=== PATIENT | male | born 2000 | race Caucasian/White ===

== ENCOUNTER 2021-02-24 14:28 | Inpatient (IN) | payer SELFPAY ==
[2021-02-24] MEDS ORDERED: Sodium Chloride 0.9% 1,000 ML IV ONE (14:31)
[2021-02-24] MEDS ORDERED: Sodium Chloride 0.9% 10 ML Syringe FLUSH PRN ×3 (14:31→18:17)
[2021-02-24] MEDS ORDERED: Diphtheria,Pertussis(Acell),Tetanus Vaccine 0.5 ML Syringe IM ONE (14:31)
[2021-02-24] MEDS ORDERED: Sodium Chloride 0.9% 2.5 ML Syringe FLUSH PRN ×3 (14:31→18:17)
[2021-02-24] MEDS ORDERED: fentaNYL 50 MCG/ML SDV IVPUSH ONE (14:33)
[2021-02-24] MEDS ORDERED: HYDROmorphone 1 MG/ML Syringe ONE (14:36)
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
[2021-02-24 15:08] LABS: BLOOD UREA NITROGEN,BUN 17 mg/dL (7.0-18.0); CHLORIDE,CL 104 mmol/L (98-107); GLUCOSE RANDOM 105 mg/dL (74-106); LIPASE 42 U/L (73-393); POTASSIUM,K 3.6 mmol/L (3.5-5.1); SODIUM,NA 142 mmol/L (136-148)
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
[2021-02-24] MEDS ORDERED: Morphine 4 MG/ML Syringe IVPUSH ONE (15:45)
[2021-02-24] MEDS: Sodium Chloride 0.9% 1,000 ML IV SCH ×2 (15:54→21:48)
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
[2021-02-24] MEDS ORDERED: HYDROmorphone 1 MG/ML Syringe IVPUSH ONE (16:00)
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
--- NOTE | 2021-02-24 16:47 | PCM.EKG ---
#1 Interpretation EKG Date: 02/24/21 Time: 16:36 Rhythm: NSR Rate (Beats/Min): 92 [place]: Normal P-Wave: Present QRS: Normal ST-T: Normal QT: Normal Comparison: NA - No Prior EKG EKG Interpretation Comments: Sinus Rhythm
[2021-02-24] MEDS ORDERED: HYDROmorphone 2 MG/ML Syringe IVPUSH ONE (17:28)
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
[2021-02-24] MEDS ORDERED: Ketorolac 30 MG/ML SDV IVPUSH ONE (17:54)
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
[2021-02-24] MEDS ORDERED: Sodium Chloride 0.9% 10 ML SDV IV PRN (18:17)
[2021-02-24] MEDS ORDERED: Ondansetron 4 MG/2 ML SDV IVPUSH PRN (18:17)
[2021-02-24] MEDS ORDERED: Acetaminophen/HYDROcodone 325-5 MG Tab PO PRN (18:17)
[2021-02-24] MEDS ORDERED: Cyclobenzaprine 5 MG Tab PO PRN (18:20)
[2021-02-24] MEDS ORDERED: Lactated Ringers 1,000 ML IV SCH (18:30)
[2021-02-24] MEDS: Nicotine 14 MG/24 Hr Patch TRDERM SCH (18:31)
[2021-02-24] MEDS: Morphine 4 MG/ML Syringe IVPUSH PRN ×3 (19:18→22:55)
[2021-02-24] MEDS: Ketorolac 30 MG/ML SDV IVPUSH SCH (20:24)
[2021-02-25] MEDS: Ketorolac 30 MG/ML SDV IVPUSH SCH ×4 (00:08→21:28)
[2021-02-25] MEDS: Morphine 4 MG/ML Syringe IVPUSH PRN ×8 (01:19→21:42)
[2021-02-25] MEDS: Sodium Chloride 0.9% 1,000 ML IV SCH (05:58)
[2021-02-25] MEDS: Nicotine 14 MG/24 Hr Patch TRDERM SCH (08:19)
--- NOTE | 2021-02-25 10:50 | PCM.PN ---
- General Info Date of Service: 02/25/21 Functional Status: Reports: Pain Controlled, Tolerating Diet, Urinating, Incentive Spirometry. Denies: New Symptoms - Review of Systems General: Reports: No Symptoms HEENT: Reports: No Symptoms Pulmonary: Reports: No Symptoms Cardiovascular: Reports: No Symptoms Gastrointestinal: Reports: No Symptoms Genitourinary: Reports: No Symptoms Musculoskeletal: Reports: Leg Pain Skin: Reports: No Symptoms Neurological: Reports: No Symptoms Psychiatric: Reports: No Symptoms - Patient Data Vitals - Most Recent: Last Vital Signs Temp 37.2 C 02/25/21 08:38 Pulse 105 H 02/25/21 08:40 Resp 18 02/25/21 08:38 BP 115/60 02/25/21 08:38 Pulse Ox 95 02/25/21 08:40 Weight - Most Recent: 104.326 kg I&O - Last 24 Hours: Intake & Output 02/24/21 02/25/21 02/25/21 22:59 06:59 14:59 Intake Total 320 330 Output Total 400 Balance -80 330 Lab Results Last 24 Hours: Laboratory Results - last 24 hr 02/24/21 02/24/21 02/24/21 Range/Units 14:35 14:35 15:00 WBC 16.08 H (4.0-11.0) K/uL RBC 4.85 (4.50-5.90) M/uL Hgb 15.7 (13.0-17.0) g/dL Hct 44.4 (38.0-50.0) % MCV 91.5 (80.0-98.0) fL MCH 32.4 H (27.0-32.0) pg MCHC 35.4 (31.0-37.0) g/dL RDW Std Deviation 42.4 (28.0-62.0) fl RDW Coeff of [place] 13 (11.0-15.0) % Plt Count 263 (150-400) K/uL MPV 11.00 (7.40-12.00) fL Neut % (Auto) 75.6 (48.0-80.0) % Lymph % (Auto) 16.9 (16.0-40.0) % [place] % (Auto) 6.6 (0.0-15.0) % Eos % (Auto) 0.7 (0.0-7.0) % Baso % (Auto) 0.2 (0.0-1.5) % Neut # (Auto) 12.2 H (1.4-5.7) K/uL Lymph # (Auto) 2.7 H (0.6-2.4) K/uL [place] # (Auto) 1.1 H (0.0-0.8) K/uL Eos # (Auto) 0.1 (0.0-0.7) K/uL Baso # (Auto) 0.0 (0.0-0.1) K/uL Nucleated RBC % 0.0 /100WBC Nucleated RBCs # 0 K/uL INR 1.01 Sodium 142 (136-148) mmol/L Potassium 3.6 (3.5-5.1) mmol/L Chloride 104 (98-107) mmol/L Carbon Dioxide 29.0 (21.0-32.0) mmol/L BUN 17 (7.0-18.0) mg/dL Creatinine 0.9 (0.8-1.3) mg/dL Est Cr Clr Drug Dosing TNP Estimated GFR (MDRD) > 60.0 ml/min Glucose 105 (74-106) mg/dL Calcium 9.2 (8.5-10.1) mg/dL Total Bilirubin 0.5 (0.2-1.0) mg/dL AST 30 (15-37) IU/L ALT 56 (14-63) IU/L Alkaline Phosphatase 102 (46-116) U/L Total Protein 8.1 (6.4-8.2) g/dL Albumin 4.2 (3.4-5.0) g/dL Globulin 3.9 (2.6-4.0) g/dL Albumin/Globulin Ratio 1.1 (0.9-1.6) Lipase 42 L (73-393) U/L Urine Color Urine Appearance Urine pH (5.0-8.0) Ur Specific [place] (1.001-1.035) Urine Protein (NEGATIVE) mg/dL Urine Glucose (UA) (NEGATIVE) mg/dL Urine Ketones (NEGATIVE) mg/dL Urine Occult Blood (NEGATIVE) Urine Nitrite (NEGATIVE) Urine Bilirubin (NEGATIVE) Urine Urobilinogen (<2.0) EU/dL Ur Leukocyte Esterase (NEGATIVE) Urine RBC (0-2/HPF) Urine WBC (0-5/HPF) Ur Epithelial Cells (NONE-FEW) Urine Bacteria (NEGATIVE) Urine Opiates Screen (NEGATIVE) Ur Oxycodone Screen (NEGATIVE) Urine Methadone Screen (NEGATIVE) Ur Barbiturates Screen (NEGATIVE) Ur Phencyclidine Scrn (NEGATIVE) Ur Amphetamine Screen (NEGATIVE) U Methamphetamines Scrn (NEGATIVE) U Benzodiazepines Scrn (NEGATIVE) U Cocaine Metab Screen (NEGATIVE) U Marijuana (THC) Screen (NEGATIVE) Ethyl Alcohol < 3.0 mg/dL SARS-CoV-2 RNA (NURYS) (NEGATIVE) Blood Type Antibody Screen 02/24/21 02/24/21 02/24/21 Range/Units 15:00 16:31 19:35 WBC (4.0-11.0) K/uL RBC (4.50-5.90) M/uL Hgb (13.0-17.0) g/dL Hct (38.0-50.0) % MCV (80.0-98.0) fL MCH (27.0-32.0) pg MCHC (31.0-37.0) g/dL RDW Std Deviation (28.0-62.0) fl RDW Coeff of [place] (11.0-15.0) % Plt Count (150-400) K/uL MPV (7.40-12.00) fL Neut % (Auto) (48.0-80.0) % Lymph % (Auto) (16.0-40.0) % [place] % (Auto) (0.0-15.0) % Eos % (Auto) (0.0-7.0) % Baso % (Auto) (0.0-1.5) % Neut # (Auto) (1.4-5.7) K/uL Lymph # (Auto) (0.6-2.4) K/uL [place] # (Auto) (0.0-0.8) K/uL Eos # (Auto) (0.0-0.7) K/uL Baso # (Auto) (0.0-0.1) K/uL Nucleated RBC % /100WBC Nucleated RBCs # K/uL INR Sodium (136-148) mmol/L Potassium (3.5-5.1) mmol/L Chloride (98-107) mmol/L Carbon Dioxide (21.0-32.0) mmol/L BUN (7.0-18.0) mg/dL Creatinine (0.8-1.3) mg/dL Est Cr Clr Drug Dosing Estimated GFR (MDRD) ml/min Glucose (74-106) mg/dL Calcium (8.5-10.1) mg/dL Total Bilirubin (0.2-1.0) mg/dL AST (15-37) IU/L ALT (14-63) IU/L Alkaline Phosphatase (46-116) U/L Total Protein (6.4-8.2) g/dL Albumin (3.4-5.0) g/dL Globulin (2.6-4.0) g/dL Albumin/Globulin Ratio (0.9-1.6) Lipase (73-393) U/L Urine Color YELLOW Urine Appearance CLEAR Urine pH 5.5 (5.0-8.0) Ur Specific [place] >= 1.030 (1.001-1.035) Urine Protein NEGATIVE (NEGATIVE) mg/dL Urine Glucose (UA) NEGATIVE (NEGATIVE) mg/dL Urine Ketones NEGATIVE (NEGATIVE) mg/dL Urine Occult Blood NEGATIVE (NEGATIVE) Urine Nitrite NEGATIVE (NEGATIVE) Urine Bilirubin NEGATIVE (NEGATIVE) Urine Urobilinogen 0.2 (<2.0) EU/dL Ur Leukocyte Esterase NEGATIVE (NEGATIVE) Urine RBC 0-1 (0-2/HPF) Urine WBC 0-1 (0-5/HPF) Ur Epithelial Cells RARE (NONE-FEW) Urine Bacteria RARE (NEGATIVE) Urine Opiates Screen (NEGATIVE) Ur Oxycodone Screen (NEGATIVE) Urine Methadone Screen (NEGATIVE) Ur Barbiturates Screen (NEGATIVE) Ur Phencyclidine Scrn (NEGATIVE) Ur Amphetamine Screen (NEGATIVE) U Methamphetamines Scrn (NEGATIVE) U Benzodiazepines Scrn (NEGATIVE) U Cocaine Metab Screen (NEGATIVE) U Marijuana (THC) Screen (NEGATIVE) Ethyl Alcohol mg/dL SARS-CoV-2 RNA (NURYS) NEGATIVE (NEGATIVE) Blood Type O NEGATIVE Antibody Screen NEGATIVE 02/24/21 Range/Units 19:35 WBC (4.0-11.0) K/uL RBC (4.50-5.90) M/uL Hgb (13.0-17.0) g/dL Hct (38.0-50.0) % MCV (80.0-98.0) fL MCH (27.0-32.0) pg MCHC (31.0-37.0) g/dL RDW Std Deviation (28.0-62.0) fl RDW Coeff of [place] (11.0-15.0) % Plt Count (150-400) K/uL MPV (7.40-12.00) fL Neut % (Auto) (48.0-80.0) % Lymph % (Auto) (16.0-40.0) % [place] % (Auto) (0.0-15.0) % Eos % (Auto) (0.0-7.0) % Baso % (Auto) (0.0-1.5) % Neut # (Auto) (1.4-5.7) K/uL Lymph # (Auto) (0.6-2.4) K/uL [place] # (Auto) (0.0-0.8) K/uL Eos # (Auto) (0.0-0.7) K/uL Baso # (Auto) (0.0-0.1) K/uL Nucleated RBC % /100WBC Nucleated RBCs # K/uL INR Sodium (136-148) mmol/L Potassium (3.5-5.1) mmol/L Chloride (98-107) mmol/L Carbon Dioxide (21.0-32.0) mmol/L BUN (7.0-18.0) mg/dL Creatinine (0.8-1.3) mg/dL Est Cr Clr Drug Dosing Estimated GFR (MDRD) ml/min Glucose (74-106) mg/dL Calcium (8.5-10.1) mg/dL Total Bilirubin (0.2-1.0) mg/dL AST (15-37) IU/L ALT (14-63) IU/L Alkaline Phosphatase (46-116) U/L Total Protein (6.4-8.2) g/dL Albumin (3.4-5.0) g/dL Globulin (2.6-4.0) g/dL Albumin/Globulin Ratio (0.9-1.6) Lipase (73-393) U/L Urine Color Urine Appearance Urine pH (5.0-8.0) Ur Specific [place] (1.001-1.035) Urine Protein (NEGATIVE) mg/dL Urine Glucose (UA) (NEGATIVE) mg/dL Urine Ketones (NEGATIVE) mg/dL Urine Occult Blood (NEGATIVE) Urine Nitrite (NEGATIVE) Urine Bilirubin (NEGATIVE) Urine Urobilinogen (<2.0) EU/dL Ur Leukocyte Esterase (NEGATIVE) Urine RBC (0-2/HPF) Urine WBC (0-5/HPF) Ur Epithelial Cells (NONE-FEW) Urine Bacteria (NEGATIVE) Urine Opiates Screen POSITIVE (NEGATIVE) Ur Oxycodone Screen NEGATIVE (NEGATIVE) Urine Methadone Screen NEGATIVE (NEGATIVE) Ur Barbiturates Screen NEGATIVE (NEGATIVE) Ur Phencyclidine Scrn NEGATIVE (NEGATIVE) Ur Amphetamine Screen NEGATIVE (NEGATIVE) U Methamphetamines Scrn NEGATIVE (NEGATIVE) U Benzodiazepines Scrn NEGATIVE (NEGATIVE) U Cocaine Metab Screen NEGATIVE (NEGATIVE) U Marijuana (THC) Screen NEGATIVE (NEGATIVE) Ethyl Alcohol mg/dL SARS-CoV-2 RNA (NURYS) (NEGATIVE) Blood Type Antibody Screen Med Orders - Current: Current Medications Hydrocodone Bitart/Acetaminophen (Acetaminophen/Hydrocodone 325-5 Mg Tab) 2 tab PO Q4H PRN PRN Reason: Pain (moderate 4-6) Cyclobenzaprine HCl (Cyclobenzaprine 5 Mg Tab) 5 mg PO TID PRN PRN Reason: muscle spasm Last Admin: 02/24/21 21:10 Dose: 5 mg Documented by: Sodium Chloride (Normal Saline) 1,000 mls @ 125 mls/hr IV STAT [facility] Last Admin: 02/25/21 05:58 Dose: 125 mls/hr Documented by: Lactated Ringer's (Ringers, Lactated) 1,000 mls @ 125 mls/hr IV ASDIRECTED [facility] Last Admin: 02/25/21 08:37 Dose: 125 mls/hr Documented by: Ketorolac Tromethamine (Ketorolac 30 Mg/Ml Sdv) 30 mg IVPUSH Q6H [facility] Stop: 02/25/21 12:31 Last Admin: 02/25/21 05:55 Dose: 30 mg Documented by: Morphine Sulfate (Morphine 4 Mg/Ml Syringe) 4 mg IVPUSH Q2H PRN PRN Reason: Pain (severe 7-10) Last Admin: 02/25/21 10:07 Dose: 4 mg Documented by: Nicotine (Nicotine 14 Mg/24 Hr Patch) 14 mg TRDERM DAILY [facility] Last Admin: 02/25/21 08:19 Dose: 14 mg Documented by: Ondansetron HCl (Ondansetron 4 Mg/2 Ml Sdv) 4 mg IVPUSH Q6H PRN PRN Reason: Nausea/Vomiting Polyethylene Glycol (Polyethylene Glycol 3350 Powder 17 Gm Packet) 17 gm PO D AILY TIM Sodium Chloride (Sodium Chloride 0.9% 10 Ml Syringe) 10 ml FLUSH ASDIRECTED PRN PRN Reason: Keep Vein Open Last Admin: 02/24/21 14:59 Dose: 10 ml Documented by: Sodium Chloride (Sodium Chloride 0.9% 2.5 Ml Syringe) 2.5 ml FLUSH ASDIRECTED PRN PRN Reason: Keep Vein Open Sodium Chloride (Sodium Chloride 0.9% 10 Ml Syringe) 10 ml FLUSH ASDIRECTED PRN PRN Reason: Keep Vein Open Last Admin: 02/24/21 14:59 Dose: 10 ml Documented by: Sodium Chloride (Sodium Chloride 0.9% 2.5 Ml Syringe) 2.5 ml FLUSH ASDIRECTED PRN PRN Reason: Keep Vein Open Sodium Chloride (Sodium Chloride 0.9% 10 Ml Syringe) 10 ml FLUSH ASDIRECTED PRN PRN Reason: Keep Vein Open Sodium Chloride (Sodium Chloride 0.9% 2.5 Ml Syringe) 2.5 ml FLUSH ASDIRECTED PRN PRN Reason: Keep Vein Open Sodium Chloride (Sodium Chloride 0.9% 10 Ml Sdv) 10 ml IV ASDIRECTED PRN PRN Reason: IV Use Discontinued Medications Diphtheria/Tetanus/Acell Pertussis (Diphtheria,Pertussis(Acell),Tetanus Vaccine 0.5 Ml Syringe) 0.5 ml IM .ONCE ONE Stop: 02/24/21 14:32 Last Admin: 02/24/21 15:17 Dose: 0.5 ml Documented by: Fentanyl (Fentanyl 50 Mcg/Ml Sdv) 100 mcg IVPUSH ONETIME ONE Stop: 02/24/21 14:34 Last Admin: 02/24/21 15:54 Dose: 100 mcg Documented by: Hydromorphone HCl (Hydromorphone 1 Mg/Ml Syringe) Confirm Administered Dose 1 mg .ROUTE .STK-MED ONE Stop: 02/24/21 14:37 Last Admin: 02/24/21 14:58 Dose: 1 mg Documented by: Hydromorphone HCl (Hydromorphone 1 Mg/Ml Syringe) 1 mg IVPUSH ONETIME ONE Stop: 02/24/21 16:01 Last Admin: 02/24/21 16:35 Dose: Not Given Documented by: Hydromorphone HCl (Hydromorphone 2 Mg/Ml Syringe) 1 mg IVPUSH ONETIME ONE Stop: 02/24/21 17:29 Last Admin: 02/24/21 17:37 Dose: 1 mg Documented by: Sodium Chloride (Normal Saline) 1,000 mls @ 999 mls/hr IV .Bolus ONE Stop: 02/24/21 15:31 Last Admin: 02/24/21 14:54 Dose: 999 mls/hr Documented by: Ketorolac Tromethamine (Ketorolac 30 Mg/Ml Sdv) 30 mg IVPUSH ONETIME ONE Stop: 02/24/21 17:55 Last Admin: 02/24/21 18:29 Dose: 30 mg Documented by: Morphine Sulfate (Morphine 4 Mg/Ml Syringe) 4 mg IVPUSH ONETIME ONE Stop: 02/24/21 15:46 Last Admin: 02/24/21 15:54 Dose: 4 mg Documented by: - Exam General: Alert, Oriented, Cooperative, No Acute Distress HEENT: Pupils Equal, Pupils Reactive, EOMI, Mucous Membr. Moist/[place] Neck: Supple, Trachea Midline Lungs: Clear to Auscultation, Normal Respiratory Effort Cardiovascular: Regular Rate, Regular Rhythm GI/Abdominal Exam: Soft, Non-Tender, No Distention, No Mass (Male) Exam: Normal Inspection Extremities: Other (right lower leg in cam boot and placed on traction. toes warm pink. Intact sensation. Good movement. No evidence of edema. Brisk capillary refill. Remainder of extremities normal. ) Peripheral Pulses: 2+: Radial (L), Radial (R), Posterior Tibial (L), Posterior Tibial (R), Dorsalis Pedis (L), Dorsalis Pedis (R) Skin: Warm, Dry, Intact Neurological: No New Focal Deficit Psy/Mental Status: Alert, Normal Affect, Normal Mood - Patient Data Lab Results Last 24 hrs: Laboratory Results - last 24 hr 02/24/21 02/24/21 02/24/21 Range/Units 14:35 14:35 15:00 WBC 16.08 H (4.0-11.0) K/uL RBC 4.85 (4.50-5.90) M/uL Hgb 15.7 (13.0-17.0) g/dL Hct 44.4 (38.0-50.0) % MCV 91.5 (80.0-98.0) fL MCH 32.4 H (27.0-32.0) pg MCHC 35.4 (31.0-37.0) g/dL RDW Std Deviation 42.4 (28.0-62.0) fl RDW Coeff of [place] 13 (11.0-15.0) % Plt Count 263 (150-400) K/uL MPV 11.00 (7.40-12.00) fL Neut % (Auto) 75.6 (48.0-80.0) % Lymph % (Auto) 16.9 (16.0-40.0) % [place] % (Auto) 6.6 (0.0-15.0) % Eos % (Auto) 0.7 (0.0-7.0) % Baso % (Auto) 0.2 (0.0-1.5) % Neut # (Auto) 12.2 H (1.4-5.7) K/uL Lymph # (Auto) 2.7 H (0.6-2.4) K/uL [place] # (Auto) 1.1 H (0.0-0.8) K/uL Eos # (Auto) 0.1 (0.0-0.7) K/uL Baso # (Auto) 0.0 (0.0-0.1) K/uL Nucleated RBC % 0.0 /100WBC Nucleated RBCs # 0 K/uL INR 1.01 Sodium 142 (136-148) mmol/L Potassium 3.6 (3.5-5.1) mmol/L Chloride 104 (98-107) mmol/L Carbon Dioxide 29.0 (21.0-32.0) mmol/L BUN 17 (7.0-18.0) mg/dL Creatinine 0.9 (0.8-1.3) mg/dL Est Cr Clr Drug Dosing TNP Estimated GFR (MDRD) > 60.0 ml/min Glucose 105 (74-106) mg/dL Calcium 9.2 (8.5-10.1) mg/dL Total Bilirubin 0.5 (0.2-1.0) mg/dL AST 30 (15-37) IU/L ALT 56 (14-63) IU/L Alkaline Phosphatase 102 (46-116) U/L Total Protein 8.1 (6.4-8.2) g/dL Albumin 4.2 (3.4-5.0) g/dL Globulin 3.9 (2.6-4.0) g/dL Albumin/Globulin Ratio 1.1 (0.9-1.6) Lipase 42 L (73-393) U/L Urine Color Urine Appearance Urine pH (5.0-8.0) Ur Specific [place] (1.001-1.035) Urine Protein (NEGATIVE) mg/dL Urine Glucose (UA) (NEGATIVE) mg/dL Urine Ketones (NEGATIVE) mg/dL Urine Occult Blood (NEGATIVE) Urine Nitrite (NEGATIVE) Urine Bilirubin (NEGATIVE) Urine Urobilinogen (<2.0) EU/dL Ur Leukocyte Esterase (NEGATIVE) Urine RBC (0-2/HPF) Urine WBC (0-5/HPF) Ur Epithelial Cells (NONE-FEW) Urine Bacteria (NEGATIVE) Urine Opiates Screen (NEGATIVE) Ur Oxycodone Screen (NEGATIVE) Urine Methadone Screen (NEGATIVE) Ur Barbiturates Screen (NEGATIVE) Ur Phencyclidine Scrn (NEGATIVE) Ur Amphetamine Screen (NEGATIVE) U Methamphetamines Scrn (NEGATIVE) U Benzodiazepines Scrn (NEGATIVE) U Cocaine Metab Screen (NEGATIVE) U Marijuana (THC) Screen (NEGATIVE) Ethyl Alcohol < 3.0 mg/dL SARS-CoV-2 RNA (NURYS) (NEGATIVE) Blood Type Antibody Screen 02/24/21 02/24/21 02/24/21 Range/Units 15:00 16:31 19:35 WBC (4.0-11.0) K/uL RBC (4.50-5.90) M/uL Hgb (13.0-17.0) g/dL Hct (38.0-50.0) % MCV (80.0-98.0) fL MCH (27.0-32.0) pg MCHC (31.0-37.0) g/dL RDW Std Deviation (28.0-62.0) fl RDW Coeff of [place] (11.0-15.0) % Plt Count (150-400) K/uL MPV (7.40-12.00) fL Neut % (Auto) (48.0-80.0) % Lymph % (Auto) (16.0-40.0) % [place] % (Auto) (0.0-15.0) % Eos % (Auto) (0.0-7.0) % Baso % (Auto) (0.0-1.5) % Neut # (Auto) (1.4-5.7) K/uL Lymph # (Auto) (0.6-2.4) K/uL [place] # (Auto) (0.0-0.8) K/uL Eos # (Auto) (0.0-0.7) K/uL Baso # (Auto) (0.0-0.1) K/uL Nucleated RBC % /100WBC Nucleated RBCs # K/uL INR Sodium (136-148) mmol/L Potassium (3.5-5.1) mmol/L Chloride (98-107) mmol/L Carbon Dioxide (21.0-32.0) mmol/L BUN (7.0-18.0) mg/dL Creatinine (0.8-1.3) mg/dL Est Cr Clr Drug Dosing Estimated GFR (MDRD) ml/min Glucose (74-106) mg/dL Calcium (8.5-10.1) mg/dL Total Bilirubin (0.2-1.0) mg/dL AST (15-37) IU/L ALT (14-63) IU/L Alkaline Phosphatase (46-116) U/L Total Protein (6.4-8.2) g/dL Albumin (3.4-5.0) g/dL Globulin (2.6-4.0) g/dL Albumin/Globulin Ratio (0.9-1.6) Lipase (73-393) U/L Urine Color YELLOW Urine Appearance CLEAR Urine pH 5.5 (5.0-8.0) Ur Specific [place] >= 1.030 (1.001-1.035) Urine Protein NEGATIVE (NEGATIVE) mg/dL Urine Glucose (UA) NEGATIVE (NEGATIVE) mg/dL Urine Ketones NEGATIVE (NEGATIVE) mg/dL Urine Occult Blood NEGATIVE (NEGATIVE) Urine Nitrite NEGATIVE (NEGATIVE) Urine Bilirubin NEGATIVE (NEGATIVE) Urine Urobilinogen 0.2 (<2.0) EU/dL Ur Leukocyte Esterase NEGATIVE (NEGATIVE) Urine RBC 0-1 (0-2/HPF) Urine WBC 0-1 (0-5/HPF) Ur Epithelial Cells RARE (NONE-FEW) Urine Bacteria RARE (NEGATIVE) Urine Opiates Screen (NEGATIVE) Ur Oxycodone Screen (NEGATIVE) Urine Methadone Screen (NEGATIVE) Ur Barbiturates Screen (NEGATIVE) Ur Phencyclidine Scrn (NEGATIVE) Ur Amphetamine Screen (NEGATIVE) U Methamphetamines Scrn (NEGATIVE) U Benzodiazepines Scrn (NEGATIVE) U Cocaine Metab Screen (NEGATIVE) U Marijuana (THC) Screen (NEGATIVE) Ethyl Alcohol mg/dL SARS-CoV-2 RNA (NURYS) NEGATIVE (NEGATIVE) Blood Type O NEGATIVE Antibody Screen NEGATIVE 02/24/21 Range/Units 19:35 WBC (4.0-11.0) K/uL RBC (4.50-5.90) M/uL Hgb (13.0-17.0) g/dL Hct (38.0-50.0) % MCV (80.0-98.0) fL MCH (27.0-32.0) pg MCHC (31.0-37.0) g/dL RDW Std Deviation (28.0-62.0) fl RDW Coeff of [place] (11.0-15.0) % Plt Count (150-400) K/uL MPV (7.40-12.00) fL Neut % (Auto) (48.0-80.0) % Lymph % (Auto) (16.0-40.0) % [place] % (Auto) (0.0-15.0) % Eos % (Auto) (0.0-7.0) % Baso % (Auto) (0.0-1.5) % Neut # (Auto) (1.4-5.7) K/uL Lymph # (Auto) (0.6-2.4) K/uL [place] # (Auto) (0.0-0.8) K/uL Eos # (Auto) (0.0-0.7) K/uL Baso # (Auto) (0.0-0.1) K/uL Nucleated RBC % /100WBC Nucleated RBCs # K/uL INR Sodium (136-148) mmol/L Potassium (3.5-5.1) mmol/L Chloride (98-107) mmol/L Carbon Dioxide (21.0-32.0) mmol/L BUN (7.0-18.0) mg/dL Creatinine (0.8-1.3) mg/dL Est Cr Clr Drug Dosing Estimated GFR (MDRD) ml/min Glucose (74-106) mg/dL Calcium (8.5-10.1) mg/dL Total Bilirubin (0.2-1.0) mg/dL AST (15-37) IU/L ALT (14-63) IU/L Alkaline Phosphatase (46-116) U/L Total Protein (6.4-8.2) g/dL Albumin (3.4-5.0) g/dL Globulin (2.6-4.0) g/dL Albumin/Globulin Ratio (0.9-1.6) Lipase (73-393) U/L Urine Color Urine Appearance Urine pH (5.0-8.0) Ur Specific [place] (1.001-1.035) Urine Protein (NEGATIVE) mg/dL Urine Glucose (UA) (NEGATIVE) mg/dL Urine Ketones (NEGATIVE) mg/dL Urine Occult Blood (NEGATIVE) Urine Nitrite (NEGATIVE) Urine Bilirubin (NEGATIVE) Urine Urobilinogen (<2.0) EU/dL Ur Leukocyte Esterase (NEGATIVE) Urine RBC (0-2/HPF) Urine WBC (0-5/HPF) Ur Epithelial Cells (NONE-FEW) Urine Bacteria (NEGATIVE) Urine Opiates Screen POSITIVE (NEGATIVE) Ur Oxycodone Screen NEGATIVE (NEGATIVE) Urine Methadone Screen NEGATIVE (NEGATIVE) Ur Barbiturates Screen NEGATIVE (NEGATIVE) Ur Phencyclidine Scrn NEGATIVE (NEGATIVE) Ur Amphetamine Screen NEGATIVE (NEGATIVE) U Methamphetamines Scrn NEGATIVE (NEGATIVE) U Benzodiazepines Scrn NEGATIVE (NEGATIVE) U Cocaine Metab Screen NEGATIVE (NEGATIVE) U Marijuana (THC) Screen NEGATIVE (NEGATIVE) Ethyl Alcohol mg/dL SARS-CoV-2 RNA (NURYS) (NEGATIVE) Blood Type Antibody Screen Result Diagrams: 02/24/21 14:35 02/24/21 14:35 Sepsis Event Note - Evaluation Sepsis Screening Result: No Definite Risk - Focused Exam Vital Signs: Vital Signs Temp Pulse Resp BP Pulse Ox 02/25/21 08:40 105 H 95 02/25/21 08:38 37.2 C 107 H 18 115/60 85 L 02/25/21 03:37 37.1 C 98 20 116/56 L 98 02/25/21 01:00 37.2 C 88 16 110/48 L 98 - Problem List & Annotations (1) Mild TBI SNOMED Code(s): 142231997 Code(s): S06.9X9A - UNSP INTRACRANIAL INJURY W LOC OF UNSP DURATION, INIT Status: Acute Current Visit: Yes (2) Femur fracture, right SNOMED Code(s): 46683896, [id number] Code(s): S72.91XA - UNSP FRACTURE OF RIGHT FEMUR, INIT FOR CLOS FX Status: Acute Current Visit: Yes - Problem List Review Problem List Initiated/Reviewed/Updated: Yes - My Orders Last 24 Hours: My Active Orders 02/24/21 18:17 Patient Status [ADT] Routine Oxygen Therapy [RC] PRN RT Incentive Spirometry [RC] Q1HWA Vital Signs [RC] Q4H Acetaminophen/HYDROcodone [[place] 325-5 MG] 2 tab PO Q4H PRN Morphine 4 mg IVPUSH Q2H PRN Ondansetron [Zofran] 4 mg IVPUSH Q6H PRN Sodium Chloride 0.9% [Normal Saline] 10 ml IV ASDIRECTED PRN Sodium Chloride 0.9% [Saline Flush] 10 ml FLUSH ASDIRECTED PRN Sodium Chloride 0.9% [Saline Flush] 2.5 ml FLUSH ASDIRECTED PRN Peripheral IV Insertion Adult [OM.PC] Urgent Resuscitation Status Routine 02/24/21 18:18 Head of Bed Elevation [RC] ASDIRECTED Intake and Output [RC] Q12H 02/24/21 18:20 Cyclobenzaprine [Flexeril] 5 mg PO TID PRN 02/24/21 18:30 Ketorolac [Toradol] 30 mg IVPUSH Q6H Lactated Ringers [Ringers, Lactated] 1,000 ml IV ASDIRECTED Nicotine [Habitrol] 14 mg TRDERM DAILY 02/25/21 Breakfast NPO After Midnight [Nothing per Oral After Midnight Diet] [DIET] 02/25/21 18:00 polyethylene glycoL 3350 [MiraLAX] 17 gm PO DAILY - Assessment Assessment:: Right mid shaft femur fracture - Plan Plan:: Secondary trauma survey was negative for any new injuries. The patient is currently nothing by mouth and has lactated Ringer's at 125 mils per hour. He is scheduled for surgery this afternoon with orthopedics. After the surgery orthopedics will take over as primary. Patient's pain is well controlled with current medications. No need for follow-up with general surgery.
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
[2021-02-25] MEDS ORDERED: Lidocaine 2% 5 ML SDV ONE (15:19)
[2021-02-25] MEDS ORDERED: Ketorolac 30 MG/ML SDV ONE (15:19)
[2021-02-25] MEDS ORDERED: Midazolam 1 MG/ML 2 ML SDV ONE (15:19)
[2021-02-25] MEDS ORDERED: Ondansetron 4 MG/2 ML SDV ONE (15:19)
[2021-02-25] MEDS ORDERED: Dexamethasone 4 MG/ML 5 ML MDV ONE (15:19)
[2021-02-25] MEDS ORDERED: HYDROmorphone 2 MG/ML Syringe ONE (15:19)
[2021-02-25] MEDS ORDERED: fentaNYL 250 MCG/5 ML SDV ONE (15:19)
[2021-02-25] MEDS ORDERED: Propofol 200 MG/20 ML SDV ONE (15:19)
[2021-02-25] MEDS ORDERED: Famotidine 20 MG/2 ML SDV ONE (15:30)
[2021-02-25] MEDS: Polyethylene Glycol 3350 Powder 17 GM Packet PO SCH (18:57)
[2021-02-25] MEDS ORDERED: traMADol 50 MG Tab PO PRN (18:59)
[2021-02-25] MEDS ORDERED: Ondansetron 4 MG/2 ML SDV IVPUSH PRN (18:59)
[2021-02-25] MEDS ORDERED: Sodium Chloride 0.9% 10 ML Syringe FLUSH PRN (18:59)
[2021-02-25] MEDS ORDERED: Sodium Chloride 0.9% 2.5 ML Syringe FLUSH PRN (18:59)
[2021-02-25] MEDS ORDERED: diphenhydrAMINE 25 MG Cap PO PRN (18:59)
[2021-02-25] MEDS ORDERED: Aluminum Hydroxide/Magnesium Hydroxide/Simethicone Susp 30 ML Cup PO PRN (18:59)
--- NOTE | 2021-02-25 19:18 | PCM.OPNOTE ---
- General Post-Op/Procedure Note Date of Surgery/Procedure: 02/25/21 Operative Procedure(s): Intramedullary nailing of right femoral shaft fracture with Zack reconstruction nail Findings: Right displaced femoral shaft fracture Pre Op Diagnosis: Right displaced femoral shaft fracture Post-Op Diagnosis: Right displaced femoral shaft fracture Anesthesia Technique: General ET Tube Primary Surgeon: Eugene Huff Support Specialist: Jaylene Quevedo (Anthony just B1 you again) Reason Support Specialist Was Necessary: Retraction during surgery Pathology: None EBL in mLs: 300 Complications: None Condition: Good Free Text/Narrative:: Patient sustained a right femoral shaft fracture. Patient was admitted to the general surgery service because of the trauma. He was medically cleared for surgery. We discussed the risks and benefits of intramedullary nailing for the femoral shaft fracture. Patient consented to proceed with surgery. Patient was taken to the operating room. After adequate general anesthesia by endotracheal tube, he was transferred to the fracture table in the supine position. Both feet were placed in boot traction. The fracture was reduced with longitudinal traction using the fracture table. C arm confirmed adequate visualization and reduction. The right buttock, hip thigh and knee were prepped and draped in the usual sterile manner. An oblique incision was made in line with the greater trochanter of the buttock. Skin was incised with a scalpel. Subcutaneous tissue was incised electrocautery. The fascia was split with the Mukherjee scissors. The tip of the trochanter was identified by palpation and a guidepin was inserted under fluoroscopic guidance. A second pin had to be used to adjust the position and get this down to the intramedullary nail with the assistance of the entry awl. The pin was then removed and the guidewire passed past the fracture to the distal femur in position confirmed with C arm. Then the opening reamer was used. Sequentially reamed from 9 mm to 11 mm with good chatter. A 9 mm x 380 mm length Bertram reconstruction nail was then inserted to the appropriate depth. The guide pins were then placed through the nail using the aiming device. The superior reconstruction screw was then drilled measured and inserted. This was in the center center position. The inferior reconstruction screw was not able to be inserted because of the patient's good bone on the pin deviated so that the drill would not go through the hole. Traction was removed and the fracture compressed. There was noted to be good alignment and interdigitation of the fracture lines. A distal interlock screw was then placed with a freehand technique. X-rays the proximal femur fracture and distal femur were then confirmed good position of the implant and appropriate fracture reduction. Wounds were irrigated. Deep tissue was closed with interrupted #1 Vicryl suture. Subcutaneous tissue was closed with 2-0 Vicryl running suture. Mikal for final skin closure. Sterile dressings were applied and patient was accompanied to recovery room in stable condition. Pain management: Toradol, acetaminophen, and oxycodone. Prophylactic antibiotics: Ancef for 2 doses. Venous thromboembolism prophylaxis: Aspirin 3 and 25 mg enteric-coated for 90 days. Restrictions: Patient is weightbearing as tolerated on his right lower extremity with crutches or an assistive device as needed. Intake & Output 02/25/21 02/25/21 02/25/21 06:59 14:59 22:59 Intake Total 320 330 0 Output Total 400 500 Balance -80 330 -500
[2021-02-25] MEDS ORDERED: Acetaminophen 325 MG Tab PO PRN (21:00)
[2021-02-25] MEDS: Aspirin 325 MG Tab PO SCH (21:47)
--- NOTE | 2021-02-25 22:49 | PCM.POSTAN ---
POST ANESTHESIA ASSESSMENT - MENTAL STATUS Mental Status: Alert, Oriented - VITAL SIGNS Vital Signs: Last Vital Signs Temp 99.3 F 02/25/21 18:56 Pulse 98 02/25/21 20:16 Resp 14 02/25/21 20:16 BP 117/71 02/25/21 20:16 Pulse Ox 93 L 02/25/21 20:16 - RESPIRATORY Respiratory Status: Respiratory Rate WNL, Airway Patent, O2 Saturation Stable - CARDIOVASCULAR CV Status: Pulse Rate WNL, Blood Pressure Stable - GASTROINTESTINAL GI Status: No Symptoms - PAIN Pain Score: 3 - POST OP HYDRATION Hydration Status: Adequate & Stable
[2021-02-25] MEDS: oxyCODONE 5 MG Tab PO PRN (23:36)
[2021-02-25] MEDS: ceFAZolin 2 GM in Premix Bag 1 BAG IV SCH (23:37)
[2021-02-26] MEDS: Morphine 4 MG/ML Syringe IVPUSH PRN ×4 (00:04→10:24)
[2021-02-26] MEDS: Ketorolac 30 MG/ML SDV IVPUSH SCH ×2 (04:21→09:53)
--- NOTE | 2021-02-26 08:04 | PCM48HPAN ---
Post Anesthesia Note - EVALUATION WITHIN 48HRS OF ANESTHETIC Vital Signs in Normal Range: Yes Patient Participated in Evaluation: Yes Respiratory Function Stable: Yes Airway Patent: Yes Cardiovascular Function Stable: Yes Hydration Status Stable: Yes Pain Control Satisfactory: Yes (Pt reports right leg discomfort, pain well- controlled after meds (01/19)) Nausea and Vomiting Control Satisfactory: Yes (Denies nausea/ vomiting, taking PO well) Mental Status Recovered: Yes Vital Signs: Last Vital Signs Temp 36.8 C 02/26/21 05:00 Pulse 88 02/26/21 05:00 Resp 16 02/26/21 05:00 BP 113/56 L 02/26/21 05:00 Pulse Ox 97 02/26/21 05:00
[2021-02-26] MEDS: Aspirin 325 MG Tab PO SCH (08:07)
[2021-02-26] MEDS: oxyCODONE 5 MG Tab PO PRN ×2 (08:07→12:06)
[2021-02-26] MEDS: Nicotine 14 MG/24 Hr Patch TRDERM SCH (08:09)
[2021-02-26] MEDS: Polyethylene Glycol 3350 Powder 17 GM Packet PO SCH (08:10)
[2021-02-26] MEDS: ceFAZolin 2 GM in Premix Bag 1 BAG IV SCH (08:14)
[2021-02-26] MEDS ORDERED: Famotidine 20 MG Tab PO SCH (09:00)
[2021-02-26] MEDS ORDERED: Ibuprofen 800 MG Tab PO PRN (09:00)
--- NOTE | 2021-02-26 09:33 | PCM.DCSUM1 ---
<Jaylene Quevedo - Last Filed: 02/26/21 09:23> Discharge Summary - Hospital Course Free Text/Narrative:: Darron underwent IM nail Right femoral shaft fracture yesterday evening by Dr. Eugene Huff. He returned to his room on med/surg for post-op care after surgery. Initially admitted under general surgery services, which Dr. Jasmin Ceja transferred to orthopedics this morning. States he slept very little last night, and is wanting to go home today. Afebrile. Voiding. Tolerating fluids without N/V. Still laying in bed and has not been served breakfast yet. Pain controlled last night with IV Morphine. Spoke with nurse and Darron to start oral pain management in preparation for home management. Incisions CDI this morning. Surgical dressings removed and 3 individual AquaCell bandages applied. Discussed with Darron that these will stay on for 7 days, and 3 new ones will be sent home with him to change dressing after 1 week. DVT prophylaxis : ASA 325mg was started last night. Bilateral SCDs. Antibiotic prophylaxis : Ancef 2gm IV, currently receiving second dose this AM. Blood work : Hg 11.8 He will be seen this morning/today by PT for transfer/ambulation with crutches training. Rx written for crutches. He was informed that he is WBAT. Discussed with Darron home pain management with routine Ibuprofen and Tylenol and/or oxycodone in addition to his NSAID. He will be scheduled follow up appt with myself in 2 weeks at ortho clinic, for xrays and removal of jade. Informed to call orthopedic clinic once home with questions or concerns. - Discharge Data Discharge Disposition: Home, Self-Care 01 Condition: Good - Referral to Home Health Primary Care Physician: PCP None - Patient Summary/Data Operative Procedure(s) Performed: Intramedullary nailing of right femoral shaft fracture with Zack reconstruction nail Consults: Consultations 02/25/21 18:59 PT Evaluation and Treatment [CONS] Routine - Patient Instructions Diet: Usual Diet as Tolerated Activity: Apply Ice (ice to right hip to decrease swelling and minimize pain), Cough & Deep Breathe (use incentive spirometer every 2 hours at home to prevent pneumonia), Full Weight Bearing (WEIGHT BEARING TOLERATES with use of crutches for ambulation), No Strenuous Activities Driving: Do Not Drive Showering/Bathing: May Shower, No Tub Bathing/Swimming (no hot tubs) Wound/Incision Care: Keep Operative Site/Wound Site Clean and Dry (Remove and apply new AquaCell bandage in 1 week. Second dressing will be removed at your clinic appointment) Notify Provider of: Fever, Increased Pain, Swelling and Redness, Drainage Other/Special Instructions: Take ASPIRIN 325mg daily. Rx sent to [facility]. Take this every day to prevent blood clots. Taking narcotics and being less active after your surgery can cause constipation. Drink plenty of fluids. Take a stool softener such as Colace if needed and/or take MiraLax daily. For pain control : 1) Take Ibuprofen routinely (800mg three times daily). Take with food. Rx has been sent to [facility]. 2) In addition to Ibuprofen, you can take oxycodone for moderate to severe pain or Tylenol for mild to moderate pain. - Discharge Plan Prescriptions/Med Rec: Aspirin 325 mg PO DAILY #90 tablet Ibuprofen [Motrin] 800 mg PO Q8H #60 tablet oxyCODONE 5 - 10 mg PO Q6HR PRN #40 tablet PRN Reason: Pain Home Medications: Home Meds Acetaminophen [Tylenol] 650 mg PO Q6H PRN tablet 02/25/21 [Rx] Aspirin 325 mg PO DAILY #90 tablet 02/25/21 [Rx] Ibuprofen [Motrin] 800 mg PO Q8H #60 tablet 02/25/21 [Rx] oxyCODONE 5 - 10 mg PO Q6HR PRN #40 tablet 02/26/21 [Rx] Patient Handouts: Crutch Use, Adult, [id number], Oxycodone tablets or capsules, Ibuprofen Oral Tablets and Capsules, Intramedullary Nailing of Femoral Shaft Fracture, Aspirin, ASA oral tablets, Intramedullary Nailing of Femoral Shaft Fracture, Care After Referrals: Jaylene Quevedo NP [Nurse Practitioner] - 03/12/21 9:40 am (Please call the orthopedic clinic with any questions or concerns.) - General Info Date of Service: 02/26/21 (814) Admission Dx/Problem (Free Text: Admission Diagnosis/Problem Admission Diagnosis/Problem Fracture of femur s/p intramedullary nail RIGHT femoral shaft fracture Functional Status: Reports: Pain Controlled (see initial summary note), Tolerating Diet, Urinating. Denies: Ambulating (see initial summary note) - Review of Systems General: Denies: Fever Musculoskeletal: Reports: Other (right hip/thigh pain. Ice packs on right hip/thigh. States right foot feels minimally numb. ) Neurological: Reports: No Symptoms - Patient Data Vitals - Most Recent: Last Vital Signs Temp 36.4 C 02/26/21 08:09 Pulse 94 02/26/21 08:09 Resp 20 02/26/21 08:09 BP 102/48 L 02/26/21 08:09 Pulse Ox 98 02/26/21 08:09 Weight - Most Recent: 230 lb I&O - Last 24 hours: Intake & Output 02/25/21 02/26/21 02/26/21 22:59 06:59 14:59 Intake Total 1000 800 Output Total 500 950 Balance 500 -150 Lab Results - Last 24 hrs: Laboratory Results - last 24 hr 02/26/21 Range/Units 05:43 Hgb 11.8 L (13.0-17.0) g/dL Hct 34.2 L (38.0-50.0) % Med Orders - Current: Current Medications Acetaminophen (Acetaminophen 325 Mg Tab) 650 mg PO Q6H PRN PRN Reason: Pain Last Admin: 02/26/21 08:07 Dose: 650 mg Documented by: Al Hydroxide/Mg Hydroxide (Aluminum Hydroxide/Magnesium Hydroxide/Simethicone Susp 30 Ml Cup) 30 ml PO Q4H PRN PRN Reason: Indigestion Aspirin (Aspirin 325 Mg Tab) 325 mg PO DAILY [facility] Last Admin: 02/26/21 08:07 Dose: 325 mg Documented by: Cyclobenzaprine HCl (Cyclobenzaprine 5 Mg Tab) 5 mg PO TID PRN PRN Reason: muscle spasm Last Admin: 02/24/21 21:10 Dose: 5 mg Documented by: Diphenhydramine HCl (Diphenhydramine 25 Mg Cap) 25 - 50 mg PO Q6H PRN PRN Reason: Itching Famotidine (Famotidine 20 Mg Tab) 40 mg PO DAILY [facility] Last Admin: 02/26/21 08:06 Dose: 40 mg Documented by: Sodium Chloride (Normal Saline) 1,000 mls @ 125 mls/hr IV STAT [facility] Last Admin: 02/25/21 05:58 Dose: 125 mls/hr Documented by: Lactated Ringer's (Ringers, Lactated) 1,000 mls @ 125 mls/hr IV ASDIRECTED [facility] Last Admin: 02/25/21 08:37 Dose: 125 mls/hr Documented by: Ibuprofen (Ibuprofen 800 Mg Tab) 800 mg PO Q8H PRN PRN Reason: Pain Ketorolac Tromethamine (Ketorolac 30 Mg/Ml Sdv) 30 mg IVPUSH Q6H [facility] Stop: 02/26/21 21:01 Last Admin: 02/26/21 04:21 Dose: 30 mg Documented by: Morphine Sulfate (Morphine 4 Mg/Ml Syringe) 4 mg IVPUSH Q2H PRN PRN Reason: Pain (severe 7-10) Last Admin: 02/26/21 04:39 Dose: 4 mg Documented by: Nicotine (Nicotine 14 Mg/24 Hr Patch) 14 mg TRDERM DAILY [facility] Last Admin: 02/26/21 08:09 Dose: 14 mg Documented by: Ondansetron HCl (Ondansetron 4 Mg/2 Ml Sdv) 4 mg IVPUSH Q6H PRN PRN Reason: Nausea/Vomiting Oxycodone HCl (Oxycodone 5 Mg Tab) 5 - 10 mg PO Q4H PRN PRN Reason: Pain Last Admin: 02/26/21 08:07 Dose: 10 mg Documented by: Polyethylene Glycol (Polyethylene Glycol 3350 Powder 17 Gm Packet) 17 gm PO DAILY [facility] Last Admin: 02/26/21 08:10 Dose: 17 gm Documented by: Sodium Chloride (Sodium Chloride 0.9% 10 Ml Syringe) 10 ml FLUSH ASDIRECTED PRN PRN Reason: Keep Vein Open Sodium Chloride (Sodium Chloride 0.9% 2.5 Ml Syringe) 2.5 ml FLUSH ASDIRECTED PRN PRN Reason: Keep Vein Open Sodium Chloride (Sodium Chloride 0.9% 10 Ml Sdv) 10 ml IV ASDIRECTED PRN PRN Reason: IV Use Sodium Chloride (Sodium Chloride 0.9% 10 Ml Syringe) 10 ml FLUSH ASDIRECTED PRN PRN Reason: Keep Vein Open Sodium Chloride (Sodium Chloride 0.9% 2.5 Ml Syringe) 2.5 ml FLUSH ASDIRECTED PRN PRN Reason: Keep Vein Open Tramadol HCl (Tramadol 50 Mg Tab) 50 - 100 mg PO Q6H PRN PRN Reason: Pain Discontinued Medications Hydrocodone Bitart/Acetaminophen (Acetaminophen/Hydrocodone 325-5 Mg Tab) 2 tab PO Q4H PRN PRN Reason: Pain (moderate 4-6) Dexamethasone (Dexamethasone 4 Mg/Ml 5 Ml Mdv) Confirm Administered Dose 20 mg .ROUTE .STK-MED ONE Stop: 02/25/21 15:20 Diphtheria/Tetanus/Acell Pertussis (Diphtheria,Pertussis(Acell),Tetanus Vaccine 0.5 Ml Syringe) 0.5 ml IM .ONCE ONE Stop: 02/24/21 14:32 Last Admin: 02/24/21 15:17 Dose: 0.5 ml Documented by: Famotidine (Famotidine 20 Mg/2 Ml Sdv) Confirm Administered Dose 20 mg .ROUTE .STK-MED ONE Stop: 02/25/21 15:31 Fentanyl (Fentanyl 50 Mcg/Ml Sdv) 100 mcg IVPUSH ONETIME ONE Stop: 02/24/21 14:34 Last Admin: 02/24/21 15:54 Dose: 100 mcg Documented by: Fentanyl (Fentanyl 250 Mcg/5 Ml Sdv) Confirm Administered Dose 250 mcg .ROUTE .STK-MED ONE Stop: 02/25/21 15:20 Hydromorphone HCl (Hydromorphone 1 Mg/Ml Syringe) Confirm Administered Dose 1 mg .ROUTE .STK-MED ONE Stop: 02/24/21 14:37 Last Admin: 02/24/21 14:58 Dose: 1 mg Documented by: Hydromorphone HCl (Hydromorphone 1 Mg/Ml Syringe) 1 mg IVPUSH ONETIME ONE Stop: 02/24/21 16:01 Last Admin: 02/24/21 16:35 Dose: Not Given Documented by: Hydromorphone HCl (Hydromorphone 2 Mg/Ml Syringe) 1 mg IVPUSH ONETIME ONE Stop: 02/24/21 17:29 Last Admin: 02/24/21 17:37 Dose: 1 mg Documented by: Hydromorphone HCl (Hydromorphone 2 Mg/Ml Syringe) Confirm Administered Dose 2 mg .ROUTE .STK-MED ONE Stop: 02/25/21 15:20 Sodium Chloride (Normal Saline) 1,000 mls @ 999 mls/hr IV .Bolus ONE Stop: 02/24/21 15:31 Last Admin: 02/24/21 14:54 Dose: 999 mls/hr Documented by: Acetaminophen (Ofirmev 1000 Mg/100 Ml) Confirm Administered Dose 100 mls @ as directed .ROUTE .STK-MED ONE Stop: 02/25/21 15:32 Cefazolin Sodium/Dextrose 2 gm (/ Premix) 50 mls @ 100 mls/hr IV Q8H TIM Stop: 02/26/21 08:29 Last Admin: 02/26/21 08:14 Dose: 100 mls/hr Documented by: Ketorolac Tromethamine (Ketorolac 30 Mg/Ml Sdv) 30 mg IVPUSH ONETIME ONE Stop: 02/24/21 17:55 Last Admin: 02/24/21 18:29 Dose: 30 mg Documented by: Ketorolac Tromethamine (Ketorolac 30 Mg/Ml Sdv) 30 mg IVPUSH Q6H TIM Stop: 02/25/21 12:31 Last Admin: 02/25/21 12:03 Dose: 30 mg Documented by: Ketorolac Tromethamine (Ketorolac 30 Mg/Ml Sdv) Confirm Administered Dose 30 mg .ROUTE .STK-MED ONE Stop: 02/25/21 15:20 Lidocaine (Lidocaine 2% 5 Ml Sdv) Confirm Administered Dose 5 ml .ROUTE .STK-MED ONE Stop: 02/25/21 15:20 Midazolam HCl (Midazolam 1 Mg/Ml 2 Ml Sdv) Confirm Administered Dose 2 mg .ROUTE .STK-MED ONE Stop: 02/25/21 15:20 Morphine Sulfate (Morphine 4 Mg/Ml Syringe) 4 mg IVPUSH ONETIME ONE Stop: 02/24/21 15:46 Last Admin: 02/24/21 15:54 Dose: 4 mg Documented by: Ondansetron HCl (Ondansetron 4 Mg/2 Ml Sdv) 4 mg IVPUSH Q6H PRN PRN Reason: Nausea/Vomiting Ondansetron HCl (Ondansetron 4 Mg/2 Ml Sdv) Confirm Administered Dose 4 mg .ROUTE .STK-MED ONE Stop: 02/25/21 15:20 Propofol (Propofol 200 Mg/20 Ml Sdv) Confirm Administered Dose 400 mg .ROUTE .STK-MED ONE Stop: 02/25/21 15:20 Sodium Chloride (Sodium Chloride 0.9% 10 Ml Syringe) 10 ml FLUSH ASDIRECTED PRN PRN Reason: Keep Vein Open Last Admin: 02/24/21 14:59 Dose: 10 ml Documented by: Sodium Chloride (Sodium Chloride 0.9% 2.5 Ml Syringe) 2.5 ml FLUSH ASDIRECTED PRN PRN Reason: Keep Vein Open Sodium Chloride (Sodium Chloride 0.9% 10 Ml Syringe) 10 ml FLUSH ASDIRECTED PRN PRN Reason: Keep Vein Open Last Admin: 02/24/21 14:59 Dose: 10 ml Documented by: Sodium Chloride (Sodium Chloride 0.9% 2.5 Ml Syringe) 2.5 ml FLUSH ASDIRECTED PRN PRN Reason: Keep Vein Open - Exam Quality Assessment: Reports: DVT Prophylaxis (bilateral SCDs and ASA. ) General: Reports: Alert, Oriented, Cooperative, No Acute Distress Lungs: Reports: Normal Respiratory Effort Extremities: Normal Inspection, No Pedal Edema, Other (Sensation grossly intact to RLE. Actively wiggling toes.) Wound/Incisions: Reports: Dressing Dry and Intact, No Drainage Neurological: Reports: Normal Speech Psy/Mental Status: Reports: Alert, Normal Affect <Eugene Huff - Last Filed: 02/27/21 08:28> Discharge Summary - Hospital Course Diagnosis: Stroke: No - Discharge Data Discharge Date: 02/26/21 - Referral to Home Health Primary Care Physician: PCP None - Patient Summary/Data Consults: Consultations 02/25/21 18:59 PT Evaluation and Treatment [CONS] Routine - Discharge Plan *PRESCRIPTION DRUG MONITORING PROGRAM REVIEWED*: No *COPY OF PRESCRIPTION DRUG MONITORING REPORT IN PATIENT [place]: No - Discharge Summary/Plan Comment DC Time >30 min.: Yes - Patient Data Vitals - Most Recent: Last Vital Signs Temp 97.7 F 02/26/21 12:00 Pulse 95 02/26/21 12:00 Resp 18 02/26/21 12:00 BP 109/50 L 02/26/21 12:00 Pulse Ox 97 02/26/21 14:00 I&O - Last 24 hours: Intake & Output 02/26/21 02/27/21 02/27/21 22:59 06:59 14:59 Intake Total 620 Output Total 500 Balance 120 Med Orders - Current: Current Medications Discontinued Medications Acetaminophen (Acetaminophen 325 Mg Tab) 650 mg PO Q6H PRN PRN Reason: Pain Last Admin: 02/26/21 08:07 Dose: 650 mg Documented by: Hydrocodone Bitart/Acetaminophen (Acetaminophen/Hydrocodone 325-5 Mg Tab) 2 tab PO Q4H PRN PRN Reason: Pain (moderate 4-6) Al Hydroxide/Mg Hydroxide (Aluminum Hydroxide/Magnesium Hydroxide/Simethicone Susp 30 Ml Cup) 30 ml PO Q4H PRN PRN Reason: Indigestion Aspirin (Aspirin 325 Mg Tab) 325 mg PO DAILY [facility] Last Admin: 02/26/21 08:07 Dose: 325 mg Documented by: Cyclobenzaprine HCl (Cyclobenzaprine 5 Mg Tab) 5 mg PO TID PRN PRN Reason: muscle spasm Last Admin: 02/24/21 21:10 Dose: 5 mg Documented by: Dexamethasone (Dexamethasone 4 Mg/Ml 5 Ml Mdv) Confirm Administered Dose 20 mg .ROUTE .STK-MED ONE Stop: 02/25/21 15:20 Diphenhydramine HCl (Diphenhydramine 25 Mg Cap) 25 - 50 mg PO Q6H PRN PRN Reason: Itching Diphtheria/Tetanus/Acell Pertussis (Diphtheria,Pertussis(Acell),Tetanus Vaccine 0.5 Ml Syringe) 0.5 ml IM .ONCE ONE Stop: 02/24/21 14:32 Last Admin: 02/24/21 15:17 Dose: 0.5 ml Documented by: Famotidine (Famotidine 20 Mg/2 Ml Sdv) Confirm Administered Dose 20 mg .ROUTE .STK-MED ONE Stop: 02/25/21 15:31 Famotidine (Famotidine 20 Mg Tab) 40 mg PO DAILY [facility] Last Admin: 02/26/21 08:06 Dose: 40 mg Documented by: Fentanyl (Fentanyl 50 Mcg/Ml Sdv) 100 mcg IVPUSH ONETIME ONE Stop: 02/24/21 14:34 Last Admin: 02/24/21 15:54 Dose: 100 mcg Documented by: Fentanyl (Fentanyl 250 Mcg/5 Ml Sdv) Confirm Administered Dose 250 mcg .ROUTE .STK-MED ONE Stop: 02/25/21 15:20 Hydromorphone HCl (Hydromorphone 1 Mg/Ml Syringe) Confirm Administered Dose 1 mg .ROUTE .STK-MED ONE Stop: 02/24/21 14:37 Last Admin: 02/24/21 14:58 Dose: 1 mg Documented by: Hydromorphone HCl (Hydromorphone 1 Mg/Ml Syringe) 1 mg IVPUSH ONETIME ONE Stop: 02/24/21 16:01 Last Admin: 02/24/21 16:35 Dose: Not Given Documented by: Hydromorphone HCl (Hydromorphone 2 Mg/Ml Syringe) 1 mg IVPUSH ONETIME ONE Stop: 02/24/21 17:29 Last Admin: 02/24/21 17:37 Dose: 1 mg Documented by: Hydromorphone HCl (Hydromorphone 2 Mg/Ml Syringe) Confirm Administered Dose 2 mg .ROUTE .STK-MED ONE Stop: 02/25/21 15:20 Sodium Chloride (Normal Saline) 1,000 mls @ 999 mls/hr IV .Bolus ONE Stop: 02/24/21 15:31 Last Admin: 02/24/21 14:54 Dose: 999 mls/hr Documented by: Sodium Chloride (Normal Saline) 1,000 mls @ 125 mls/hr IV STAT [facility] Last Admin: 02/25/21 05:58 Dose: 125 mls/hr Documented by: Lactated Ringer's (Ringers, Lactated) 1,000 mls @ 125 mls/hr IV ASDIRECTED [facility] Last Admin: 02/25/21 08:37 Dose: 125 mls/hr Documented by: Acetaminophen (Ofirmev 1000 Mg/100 Ml) Confirm Administered Dose 100 mls @ as directed .ROUTE .STK-MED ONE Stop: 02/25/21 15:32 Cefazolin Sodium/Dextrose 2 gm (/ Premix) 50 mls @ 100 mls/hr IV Q8H [facility] Stop: 02/26/21 08:29 Last Admin: 02/26/21 08:14 Dose: 100 mls/hr Documented by: Ibuprofen (Ibuprofen 800 Mg Tab) 800 mg PO Q8H PRN PRN Reason: Pain Last Admin: 02/26/21 10:25 Dose: 800 mg Documented by: Ketorolac Tromethamine (Ketorolac 30 Mg/Ml Sdv) 30 mg IVPUSH ONETIME ONE Stop: 02/24/21 17:55 Last Admin: 02/24/21 18:29 Dose: 30 mg Documented by: Ketorolac Tromethamine (Ketorolac 30 Mg/Ml Sdv) 30 mg IVPUSH Q6H [facility] Stop: 02/25/21 12:31 Last Admin: 02/25/21 12:03 Dose: 30 mg Documented by: Ketorolac Tromethamine (Ketorolac 30 Mg/Ml Sdv) Confirm Administered Dose 30 mg .ROUTE .STK-MED ONE Stop: 02/25/21 15:20 Ketorolac Tromethamine (Ketorolac 30 Mg/Ml Sdv) 30 mg IVPUSH Q6H [facility] Stop: 02/26/21 21:01 Last Admin: 02/26/21 09:53 Dose: Not Given Documented by: Lidocaine (Lidocaine 2% 5 Ml Sdv) Confirm Administered Dose 5 ml .ROUTE .STK-MED ONE Stop: 02/25/21 15:20 Midazolam HCl (Midazolam 1 Mg/Ml 2 Ml Sdv) Confirm Administered Dose 2 mg .ROUTE .STK-MED ONE Stop: 02/25/21 15:20 Morphine Sulfate (Morphine 4 Mg/Ml Syringe) 4 mg IVPUSH ONETIME ONE Stop: 02/24/21 15:46 Last Admin: 02/24/21 15:54 Dose: 4 mg Documented by: Morphine Sulfate (Morphine 4 Mg/Ml Syringe) 4 mg IVPUSH Q2H PRN PRN Reason: Pain (severe 7-10) Last Admin: 02/26/21 10:24 Dose: 4 mg Documented by: Nicotine (Nicotine 14 Mg/24 Hr Patch) 14 mg TRDERM DAILY [facility] Last Admin: 02/26/21 08:09 Dose: 14 mg Documented by: Ondansetron HCl (Ondansetron 4 Mg/2 Ml Sdv) 4 mg IVPUSH Q6H PRN PRN Reason: Nausea/Vomiting Ondansetron HCl (Ondansetron 4 Mg/2 Ml Sdv) Confirm Administered Dose 4 mg .ROUTE .STK-MED ONE Stop: 02/25/21 15:20 Ondansetron HCl (Ondansetron 4 Mg/2 Ml Sdv) 4 mg IVPUSH Q6H PRN PRN Reason: Nausea/Vomiting Oxycodone HCl (Oxycodone 5 Mg Tab) 5 - 10 mg PO Q4H PRN PRN Reason: Pain Last Admin: 02/26/21 12:06 Dose: 10 mg Documented by: Polyethylene Glycol (Polyethylene Glycol 3350 Powder 17 Gm Packet) 17 gm PO DAILY [facility] Last Admin: 02/26/21 08:10 Dose: 17 gm Documented by: Propofol (Propofol 200 Mg/20 Ml Sdv) Confirm Administered Dose 400 mg .ROUTE .[facility]-MED ONE Stop: 02/25/21 15:20 Sodium Chloride (Sodium Chloride 0.9% 10 Ml Syringe) 10 ml FLUSH ASDIRECTED PRN PRN Reason: Keep Vein Open Last Admin: 02/24/21 14:59 Dose: 10 ml Documented by: Sodium Chloride (Sodium Chloride 0.9% 2.5 Ml Syringe) 2.5 ml FLUSH ASDIRECTED PRN PRN Reason: Keep Vein Open Sodium Chloride (Sodium Chloride 0.9% 10 Ml Syringe) 10 ml FLUSH ASDIRECTED PRN PRN Reason: Keep Vein Open Last Admin: 02/24/21 14:59 Dose: 10 ml Documented by: Sodium Chloride (Sodium Chloride 0.9% 2.5 Ml Syringe) 2.5 ml FLUSH ASDIRECTED PRN PRN Reason: Keep Vein Open Sodium Chloride (Sodium Chloride 0.9% 10 Ml Syringe) 10 ml FLUSH ASDIRECTED PRN PRN Reason: Keep Vein Open Sodium Chloride (Sodium Chloride 0.9% 2.5 Ml Syringe) 2.5 ml FLUSH ASDIRECTED PRN PRN Reason: Keep Vein Open Sodium Chloride (Sodium Chloride 0.9% 10 Ml Sdv) 10 ml IV ASDIRECTED PRN PRN Reason: IV Use Sodium Chloride (Sodium Chloride 0.9% 10 Ml Syringe) 10 ml FLUSH ASDIRECTED PRN PRN Reason: Keep Vein Open Sodium Chloride (Sodium Chloride 0.9% 2.5 Ml Syringe) 2.5 ml FLUSH ASDIRECTED PRN PRN Reason: Keep Vein Open Tramadol HCl (Tramadol 50 Mg Tab) 50 - 100 mg PO Q6H PRN PRN Reason: Pain Discharge Operative/Procedures - Procedures Performed Operations/Procedure Comment: Intrameduallry nailing of right femoral shaft fracture
--- NOTE | 2021-02-26 09:48 | CR ---
INDICATION: Fracture repair right femur. FINDINGS: 146 seconds of fluoroscopy has been utilized for placement of an intramedullary david and fixation of a fracture of the diaphysis of the right femur. Six C-arm fluoroscopic images demonstrate intraoperative placement and fixation of an intramedullary david. IMPRESSION: Fracture repair of right femur as detailed above. Dictated by Jonah Curran MD @ 02/26/2021 9:47:[address] Jonah Curran @ Feb 26 2021 9:47AM
== END 2021-02-26 15:30 | disposition home or self-care (01) | DRG 482 ==
LOC: MW.ED 14:28 → MW.MS 18:17
PROVIDERS: ADMIT Surgery; ATTEND Surgery
PROC: 0QS836Z Reposition Right Femoral Shaft with Intramedullary Internal Fixation Device, Percutaneous Approach (ICD-10-PCS; principal; 2021-02-25)
DX: S72.301A Unspecified fracture of shaft of right femur, initial encounter for closed fracture (principal); V86.56XA Driver of dirt bike or motor/cross bike injured in nontraffic accident, initial encounter; J45.909 Unspecified asthma, uncomplicated; F17.210 Nicotine dependence, cigarettes, uncomplicated; Z20.822 Contact with and (suspected) exposure to COVID-19; Z79.82 Long term (current) use of aspirin
CPT/HCPCS: 01230; 36415; 70450; 70450-26; 71045; 71045-26; 72125; 72125-26; 72170; 72170-26; 72192; 72192-26; 73551-26-RT; 73551-RT; 80053; 80305-QW; 80307; 81001; 83690; 85014; 85018; 85025; 85610; 86850; 86900; 86901; 90715; 93005; 97161-GP; 97530-GP; A9270-GY; J0131; J0690; J1100; J1170; J1885; J2250; J2270; J2405; J2704; J3010; J3490; J7030; J7120; U0002

== ENCOUNTER 2021-04-13 15:06 | Emergency (ER) | payer SELFPAY ==
[2021-04-13] MEDS ORDERED: Sodium Chloride 0.9% 2.5 ML Syringe FLUSH PRN (15:44)
[2021-04-13] MEDS ORDERED: Sodium Chloride 0.9% 10 ML Syringe FLUSH PRN (15:44)
[2021-04-13] MEDS ORDERED: Ketorolac 30 MG/ML SDV IVPUSH ONE (15:44)
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
[2021-04-13 17:27] LABS: BLOOD UREA NITROGEN,BUN 7 mg/dL (7.0-18.0); CARBON DIOXIDE,CO2 27.3 mmol/L (21.0-32.0); CHLORIDE,CL 106 mmol/L (98-107); GLUCOSE RANDOM 84 mg/dL (74-106); POTASSIUM,K 3.6 mmol/L (3.5-5.1); SODIUM,NA 141 mmol/L (136-148)
== END 2021-04-13 17:56 | disposition home or self-care (01) ==
LOC: MW.ED 15:06
DX: T81.40XA Infection following a procedure, unspecified, initial encounter (principal); Z79.82 Long term (current) use of aspirin
CPT/HCPCS: 36415; 73700; 80053; 85025; 96374; 99284; J1885; 99283